=== PATIENT | male | born 1980 | race Caucasian/White ===

== ENCOUNTER 2018-02-10 08:18 | Emergency (ER) | payer BC ==
--- NOTE | 2018-02-10 08:39 | EDM.PDOC ---
ED HPI GENERAL MEDICAL PROBLEM - General Chief Complaint: General Stated Complaint: POSSIBLE BROKE HIS RT WRIST Time Seen by Provider: 02/10/18 08:37 Source of Information: Reports: Patient - History of Present Illness INITIAL COMMENTS - FREE TEXT/NARRATIVE: HISTORY AND PHYSICAL: History of present illness: [ Patient slipped yesterday falling against the timing of his trailer striking his right ribs, he has 7 out of 10 rib pain with movement of his arm no shortness of breath or diaphoresis no actual chest pain no fever nausea vomiting chills sweats Patient has difficulty picking up the weight of his cell phone due to rib pain, he states he feels a clicking with movement of his arm on his chest wall however x-ray appears normal with study question a nondisplaced fracture on rib 8 which coincides with the bruising/contusion on his chest wall on the first AP view ] Triage notes a's wrist pain this is incorrect it is rib pain Review of systems: As per history of present illness and below otherwise all systems reviewed and negative. Past medical history: As per history of present illness and as reviewed below otherwise noncontributory. Surgical history: As per history of present illness and as reviewed below otherwise noncontributory. Social history: No reported history of drug or alcohol abuse. Family history: As per history of present illness and as reviewed below otherwise noncontributory. Physical exam: HEENT: Atraumatic, normocephalic, pupils reactive, negative for conjunctival pallor or scleral icterus, mucous membranes moist, throat clear, neck supple, nontender, trachea midline. Lungs: Clear to auscultation, breath sounds equal bilaterally, chest wall tender on the right along rib 8 Heart: S1S2, regular, negative for clicks, rubs, or JVD. Abdomen: Soft, nondistended, nontender. Negative for masses or hepatosplenomegaly. Negative for costovertebral tenderness. Pelvis: Stable nontender. Genitourinary: Deferred. Rectal: Deferred. Extremities: Atraumatic, negative for cords or calf pain. Neurovascular unremarkable. Neuro: Awake, alert, oriented. Cranial nerves II through XII unremarkable. Cerebellum unremarkable. Motor and sensory unremarkable throughout. Exam nonfocal. Diagnostics: [Right ribs with chest ] Therapeutics: [Rest ice ibuprofen Patient offered [place] however he declines narcotic pain medication ] Impression: [Chest wall pain]/contusion Question nondisplaced fracture on rib 8 on the right Definitive disposition and diagnosis as appropriate pending reevaluation and review of above. right rib Pain Score (Numeric/FACES): 9 - Related Data Allergies Allergy/AdvReac Type Severity Reaction Status Date / Time sulfite Allergy Cannot Verified 02/10/18 08:30 Remember Home Meds: Home Meds . [No Known Home Meds] 02/10/18 [History] Past Medical History Gastrointestinal History: Reports: Pancreatitis Oncologic (Cancer) History: Reports: Other (See Below) Other Oncologic History: Pectorial cancer . surgery for cancer. Social & Family History - Family History Family Medical History: Noncontributory - Tobacco Use Smoking Status *Q: Never Smoker - Caffeine Use Caffeine Use: Reports: None - Recreational Drug Use Recreational Drug Use: No ED ROS GENERAL - Review of Systems Review Of Systems: ROS reveals no pertinent complaints other than HPI. ED EXAM, GENERAL - Physical Exam Exam: See Below Course - Vital Signs Last Recorded V/S: Last Vital Signs Temp 97.4 F 02/10/18 08:35 Pulse 63 02/10/18 08:35 Resp 18 02/10/18 08:35 BP 126/51 L 02/10/18 08:35 Pulse Ox 99 02/10/18 08:35 Departure - Departure Time of Disposition: 09:25 Disposition: Home, Self-Care 01 Condition: Good Clinical Impression: Rib fracture, Contusion - Discharge Information Referrals: PCP,None [Primary Care Provider] - Forms: ED Department Discharge Additional Instructions: Rest Recommend light duty 20 pound weight limit initially over the first week and then work as tolerated Ibuprofen 400 mg to 800 mg by mouth 3 times daily 7-10 days Return if symptoms persist or worsen Follow-up with primary care in 2 weeks sooner as needed or if further restriction as needed [facility] [address] [place] [address] The following information is given to patients seen in the emergency department who are being discharged to home. This information is to outline your options for follow-up care. We provide all patients seen in our emergency department with a follow-up referral. The need for follow-up, as well as the timing and circumstances, are variable depending upon the specifics of your emergency department visit. If you don't have a primary care physician on staff, we will provide you with a referral. We always advise you to contact your personal physician following an emergency department visit to inform them of the circumstance of the visit and for follow-up with them and/or the need for any referrals to a consulting specialist. The emergency department will also refer you to a specialist when appropriate. This referral assures that you have the opportunity for follow-up care with a specialist. All of these measure are taken in an effort to provide you with optimal care, which includes your follow-up. Under all circumstances we always encourage you to contact your private physician who remains a resource for coordinating your care. When calling for follow-up care, please make the office aware that this follow-up is from your recent emergency room visit. If for any reason you are refused follow-up, please contact the [facility] emergency department at and asked to speak to the emergency department charge nurse.
--- NOTE | 2018-02-10 09:16 | CR ---
EXAMINATION: PA chest and right ribs. HISTORY: Fall. FINDINGS: The trachea is midline. The cardiomediastinal silhouette is within normal limits. No pulmonary infilt rates, effusions or pneumothorax. Osseous structures appear unremarkable. Bilateral cervical ribs are noted. No displaced rib fracture identified. IMPRESSION: No acute cardiopulmonary process.
== END 2018-02-10 09:36 | disposition home or self-care (01) ==
LOC: MW.ED 08:18
DX: S22.31XA Fracture of one rib, right side, initial encounter for closed fracture (principal); S20.211A Contusion of right front wall of thorax, initial encounter; Z88.2 Allergy status to sulfonamides; W01.0XXA Fall on same level from slipping, tripping and stumbling without subsequent striking against object, initial encounter
CPT/HCPCS: 71101-26-RT; 71101-RT; 99283